=== PATIENT | female | born 1995 | race Caucasian/White ===

== ENCOUNTER → 2017-12-08 18:27 | Emergency (ER) | payer OTHER ==
[~2017-12-08 18:27] MED LIST: Famotidine TAB* 20 MG PO ONE; predniSONE TAB* 20 MG PO ONE
--- OUTSIDE RECORDS SUMMARY | 2017-12-08 18:55 | XMS REPORT ---
:1995 External Reference #:[id number] Author Organization [facility] Address [address] [place] [address] Phone [phone] Care Team Providers Name Role Phone Ines De La Cruz M.D. Care Team Information Order Packer Or Packager Unavailable Payers Type Date Identification Numbers Payment Provider Subscriber Commercial Policy Number: [id number] [facility] Moises Alvarado PayID: [id number] [address] [place] [address] Problems Date Description Provider Status Onset: 10/27/2016 Mild intermittent asthma Ines De La Cruz M.D. Active Onset: 04/09/2016 Atopic dermatitis Ines De La Cruz M.D. 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 Active Onset: 04/09/2016 Allergic rhinitis Ines De La Cruz M.D. Active Onset: 04/09/2016 Allergic rhinitis due to animals Ines De La Cruz M.D. Active Onset: 04/09/2016 Allergic rhinitis due to pollen Ines De La Cruz M.D. Active Onset: 04/09/2016 Mild persistent asthma Ines De La Cruz M.D. 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 Home Environment Has a window air conditioner Home Environment Stairs are present Home Environment Unfinished Basement Home Environment The basement is damp Home Environment Down Comforter Home Environment Mattress is encased in an allergy proof case Home Environment No Mattress Cover Home Environment Mattress is 2 years old Home Environment Pillows are encased in an allergy proof case Home Environment Pillows are polyester Home Environment Does not use a dehumidifier Home Environment There are draperies in the home Home Environment The home is not chuy Home Environment The floors are wood Home Environment The floors are tile Home Environment Uses forced air heating Home Environment [place] Home Environment Water Source: [facility] Smoke-Free Work is smoke-free Smoke-Free Home is smoke-free Pets several cats currently 1, roommate with 1, may get second Occupation Student Occupation [employer] Work Status Part-Time Employment Work Environment [facility] Hobbies Bowling Hobbies Running Hobbies Soccer Cigarette Use Never Smoked Cigarettes Cigars Never Smoked Cigars Pipe Never Smoked A Pipe Smokeless Tobacco Never Used Smokeless Tobacco ETOH Use Occasionally consumes alcohol ETOH Use Rarely consumes beer ETOH Use Occasionally consumes wine ETOH Use Occasionally consumes liquor Smoking Patient has never smoked Recreational Drug Use Never Used Drugs Allergies, Adverse Reactions, Alerts Date Description Reaction Status Severity Comments 04/05/2016 Sesame Anaphylaxis active 04/05/2016 Tree Nuts Anaphylaxis active 04/05/2016 Sulfa Anaphylaxis active 04/09/2016 Arythromycin intolerance active 10/27/2016 Latex Contact dermatitis active 10/27/2016 Opioid headache active Medications Medication Date Status Form Strength Qnty SIG Indications Ordering Provider Symbicort 11/17/ Active Aerosol 160-4.5mcg 10.20 2 2017 /Act 0gm inhalations Jono am&pm Leni Auvi-Q 05/10/ Active Solution 0.3mg/0.3M 2unit use as J30.1 2016 Auto-Injec L s directed sonja De La Cruz M.D. Qnasl 04/09/ Active Aerosol 80mcg/Act 8.7un 1-2 sprays Natalie 2016 its in each Uldrich, nostril HEARING SPECIALIST-C daily Proair HFA / Active Aerosol 108(90Base 8.500 two Natalie 0000 ) mcg/Act gm inhalations Uldrich, every 4 HEARING SPECIALIST-C hours as needed for cough, wheezing or chest tightness Elidel / Active Cream 1% apply to Unknown 0000 affected areas twice a day Fluocinonide / Active Solution 0.05% Unknown 0000 Epipen 2-Jayro / Active Solution 0.3mg/0.3M 2unit use as Kelly 0000 Auto-Injec L s directed. Magnolia t May fill HEARING SPECIALIST-C with Mylan generic Only if Epipen is not available Eucrisa / Active Ointment 2% Apply To Unknown 0000 Affected Area Twice Daily Symbicort / Active Aerosol 160-4.5mcg 2 Unknown 0000 /Act inhalations am&pm Cortizone-10 / Active Cream 1% Unknown Plus 0000 Medications Administered in Office Medication Date Status Form Strength Qnty SIG Indications Ordering Provider Injection 11/18/19 Administered Injection Allergy 18 Injection Injection 11/05/19 Administered Injection Allergy 18 Injection Injection 10/06/19 Administered Injection Allergy 18 Injection Injection 09/27/19 Administered Injection Allergy 18 Injection Injection 08/25/19 Administered Injection Allergy 18 Injection Injection 08/19/19 Administered Injection Ines De La Cruz M.D. Injection 08/19/19 Administered Injection Allergy 18 Injection Injection 08/06/19 Administered Injection Allergy 18 Injection Injection 08/02/19 Administered Injection Allergy 18 Injection Injection 07/30/19 Administered Injection Allergy 18 Injection Injection 07/02/19 Administered Injection Allergy 18 Injection Injection 06/25/19 Administered Injection Allergy 18 Injection Injection 06/21/19 Administered Injection Allergy 18 Injection Injection 06/14/19 Administered Injection Allergy 18 Injection Injection 06/07/19 Administered Injection Allergy 18 Injection Injection 05/31/19 Administered Injection Allergy 18 Injection Injection 05/26/19 Administered Injection Allergy 18 Injection Injection 05/19/19 Administered Injection Allergy 18 Injection Injection 05/12/19 Administered Injection Allergy 18 Injection Injection 05/05/19 Administered Injection Ines De La Cruz M.D. Injection 05/05/19 Administered Injection Allergy 18 Injection Injection 04/28/19 Administered Injection Allergy 18 Injection Injection 04/21/19 Administered Injection Allergy 18 Injection Injection 04/13/19 Administered Injection Allergy 18 Injection Injection 04/04/19 Administered Injection Allergy 18 Injection Injection 03/28/19 Administered Injection Allergy 18 Injection Injection 03/11/19 Administered Injection Allergy 18 Injection Injection 03/07/19 Administered Injection Allergy 18 Injection Injection 02/25/19 Administered Injection Allergy 18 Injection Injection 02/18/19 Administered Injection Ines De La Cruz M.D. Injection 02/18/19 Administered Injection Allergy 18 Injection Injection 02/12/20 Administered Injection Allergy 17 Injection Injection 01/29/20 Administered Injection Ines 17 Leni De La Cruz Injection 01/29/20 Administered Injection Allergy 17 Injection Injection 01/20/20 Administered Injection Allergy 17 Injection Injection 01/11/20 Administered Injection Allergy 17 Injection Injection 01/04/20 Administered Injection Allergy 17 Injection Injection 01/01/20 Administered Injection Allergy 17 Injection Injection 12/28/19 Administered Injection Allergy 17 Injection Injection 12/17/19 Administered Injection Allergy 17 Injection Injection 11/27/19 Administered Injection Allergy 17 Injection Injection 11/20/19 Administered Injection Allergy 17 Injection Injection 11/16/19 Administered Injection Allergy 17 Injection Injection 11/05/19 Administered Injection Allergy 17 Injection Injection 10/30/19 Administered Injection Ines De La Cruz M.D. Injection 10/30/19 Administered Injection Allergy 17 Injection Injection 10/23/19 Administered Injection Allergy 17 Injection Injection 10/16/19 Administered Injection Allergy 17 Injection Injection 10/09/19 Administered Injection Allergy 17 Injection Injection 10/02/19 Administered Injection Allergy 17 Injection Immunizations CPT Code Status Date Vaccine Lot # 90045 Given Unknown Influenza Vaccine 19534 Given Unknown Influenza Vaccine Vital Signs Date Vital Result Comment 11/17/2017 Height 63.5 inches 5'3.50" Weight 161.00 lb Weight in kg's 73.030 Respiratory Rate 16 /min Heart Rate 103 /min O2 % BldC Oximetry 97 % BP Systolic 110 mmHg BP Diastolic 58 mmHg Asthma Control Test 20 BMI (Body Mass Index) 28.1 kg/m2 05/04/2017 Height 63.5 inches 5'3.50" Weight 160.00 lb Weight in kg's 72.576 Respiratory Rate 20 /min Heart Rate 78 /min O2 % BldC Oximetry 98 % BP Systolic 104 mmHg BP Diastolic 61 mmHg Asthma Control Test 22 BMI (Body Mass Index) 27.9 kg/m2 10/27/2016 Height 63.5 inches 5'3.50" Weight 165.00 lb Weight in kg's 74.844 Respiratory Rate 20 /min Heart Rate 67 /min O2 % BldC Oximetry 98 % BP Systolic 105 mmHg BP Diastolic 65 mmHg Asthma Control Test 25 BMI (Body Mass Index) 28.8 kg/m2 05/10/2016 Height 63.5 inches 5'3.50" Weight 156.00 lb Weight in kg's 70.762 Respiratory Rate 16 /min Heart Rate 92 /min O2 % BldC Oximetry 98 % BP Systolic 114 mmHg BP Diastolic 76 mmHg Asthma Control Test 25 BMI (Body Mass Index) 27.2 kg/m2 04/09/2016 Height 63.5 inches 5'3.50" Weight 156.00 lb Weight in kg's 70.762 Respiratory Rate 16 /min Heart Rate 99 /min O2 % BldC Oximetry 83 % BP Systolic 101 mmHg BP Diastolic 63 mmHg Asthma Control Test 25 BMI (Body Mass Index) 27.2 kg/m2 Results Description No Information Procedures Date CPT Code Description Status 11/17/2017 30900 Injection Completed 11/17/2017 50347 Pre PFT Completed 11/04/2017 89440 Injection Completed 10/05/2017 19374 Injection Completed 09/26/2017 59683 Injection Completed 08/24/2017 97985 Injection Completed 08/18/2017 22964 Extract 1-10 Completed 08/18/2017 52556 Extract 1-10 Completed 08/18/2017 16977 Injection Completed 08/18/2017 23048 Injection Completed 08/05/2017 25206 Injection Completed 08/01/2017 83694 Injection Completed 07/29/2017 27267 Injection Completed 07/01/2017 35130 Injection Completed 06/24/2017 96137 Injection Completed 06/20/2017 98757 Injection Completed 06/13/2017 29357 Injection Completed 06/06/2017 08047 Injection Completed 05/30/2017 05804 Injection Completed 05/25/2017 43223 Extract 1-10 Completed 05/25/2017 26918 Injection Completed 05/18/2017 70415 Injection Completed 05/11/2017 70858 Injection Completed 05/04/2017 76552 Injection Completed 05/04/2017 92239 Injection Completed 04/27/2017 90734 Injection Completed 04/20/2017 90068 Injection Completed 04/13/2017 21147 Injection Completed 04/04/2017 54776 Injection Completed 03/28/2017 77524 Injection Completed 03/11/2017 16514 Injection Completed 03/07/2017 36175 Extract 1-10 Completed 03/07/2017 74969 Injection Completed 02/25/2017 70688 Injection Completed 02/18/2017 34818 Injection Completed 02/18/2017 72022 Injection Completed 02/11/2017 67967 Injection Completed 01/28/2017 40637 Injection Completed 01/28/2017 12620 Injection Completed 01/19/2017 78087 Injection Completed 01/10/2017 45657 Injection Completed 01/03/2017 86454 Injection Completed 12/31/2016 52955 Injection Completed 12/27/2016 98789 Injection Completed 12/16/2016 44852 Injection Completed 12/16/2016 79657 Extract 1-10 Completed 11/26/2016 88204 Injection Completed 11/19/2016 14453 Injection Completed 11/15/2016 26565 Injection Completed 11/04/2016 07885 Injection Completed 10/29/2016 78609 Injection Completed 10/29/2016 77271 Injection Completed 10/22/2016 27699 Injection Completed 10/15/2016 74342 Injection Completed 10/08/2016 26969 Injection Completed 10/01/2016 58736 Injection Completed 09/29/2016 41083 Extract 1-10 Completed 04/09/2016 98907 Skin Test Scratch # Of Units ____ Completed 04/09/2016 25131 Pre PFT Completed Encounters Type Date Location Provider CPT E/M Dx Office Visit 05/04/2017 4:20p Zuleyma De La Cruz M.D. 12644 J45.20 J30.1 J30.2 J30.81 Office Visit 10/27/2016 4:20p Zuleyma De La Cruz M.D. 76449 J30.1 J30.2 J30.81 J45.20 Office Visit 05/10/2016 1:20p VINCENT Arredondo 79338 J30.1 J45.30 J30.81 T78.05xA J30.89 L20.9 Z68.27 Office Visit 04/09/2016 1:20p Zuleyma De La Cruz M.D. 50794 J30.1 J45.30 J30.81 T78.05xA J30.89 J30.1 L20.9 J30.81 J30.89 L20.9 Z68.27 Plan of Care Future Appointment(s):02/15/2018 4:20 pm - Ines De La Cruz M.D. at [id number] 4:30 pm - Allergy Injection at [id number]/17/2017 - Ines De La Cruz M.D.J45.30 Mild persistent asthma, pvsaxqyfhlfknW56.2 Other seasonal allergic axkepvrlT04.81 Allergic rhinitis due to animal (cat) (dog) hair and qawqhtO03.1 Allergic rhinitis due to pollenNew Medication:Symbicort 160-4.5 mcg/ActFollow up :January 2018 Génesis and PRE CHECK-UP/FOLLOW UP VISIT: Continued management of patient's medical care.Recommendations:Refrain from wearing perfumes/scented colognes while visiting our office. www.epa.gov/IAQ - indoor air quality Check it make sure that it is not electrostatic/ Ionizing, these can produce ozone PRE_PFT performed reviewed, looks decreased from your previous test in 03/2016 Do suggest at least for a few weeks increase Symbicort to 2 puffs twice daily Continue the QNASL and Antihistamine as you have Let us know where you will be going when you travel in 2019 and we will see what we can do in order to
--- NOTE | 2017-12-08 19:04 | ED ---
Allergic Reaction/Systemic - HPI Summary HPI Summary: Patient with history of sesame allergy states she was eating some pretzels and felt throat irritation. Checked the ingredients which were positive for sesame. Patient carries EpiPen due to prior reaction to sesame but did not use today. Patient called 911, EMS gave 50 mg IV of Benadryl, Pt states throat symptoms are improving. Denies any other current or active symptoms. Patient states she has had 8-10 reactions before varying from minor to anaphylaxis with sesame. Denies CP, SOB, rash, oral swelling, oral swelling. - History of Current Complaint Chief Complaint: EDAllergicReaction Time Seen by Provider: 12/08/17 18:45 Hx Obtained From: Patient Onset/Duration: Sudden Onset Severity Currently: None Pain Intensity: 0 Pain Scale Used: 0-10 Numeric Alleviating Factor(s): Antihistamines Associated Signs And Symptoms: Positive: Throat Tightening - Allergies/Home Medications Allergies/Adverse Reactions: Allergies Allergy/AdvReac Type Severity Reaction Status Date / Time MS Erythromycin Allergy Nausea Verified 12/08/17 18:44 [Erythromycin] MS Sesame Oil [Sesame Oil] Allergy Anxiety Verified 12/08/17 18:44 MS Sulfa Antibiotics Allergy Anaphylatic Verified 12/08/17 18:44 [Sulfa Antibiotics] Shock eleuterio nut Allergy Nausea Uncoded 12/08/17 18:44 nuts Allergy Hives Uncoded 12/08/17 18:44 opiates Allergy Headache Uncoded 12/08/17 18:44 PMH/Surg Hx/FS Hx/Imm Hx Endocrine/Hematology History: Denies: Hx Anticoagulant Therapy Respiratory History: Reports: Hx Asthma History: Denies: Hx Dialysis Neurological History: Denies: Hx CVA Infectious Disease History: No Infectious Disease History: Denies: Traveled Outside the [place] in Last 30 Days - Family History Known Family History: Negative: Cardiac Disease, Hypertension, Diabetes - Social History Alcohol Use: Occasionally Hx Substance Use: No Substance Use Type: Reports: None Hx Tobacco Use: No Smoking Status (MU): Never Smoked Tobacco Review of Systems Constitutional: Negative Eyes: Negative Positive: Other Cardiovascular: Negative Respiratory: Negative Gastrointestinal: Negative Genitourinary: Negative Musculoskeletal: Negative Skin: Negative Neurological: Negative Psychological: Normal All Other Systems Reviewed And Are Negative: Yes Physical Exam Triage Information Reviewed: Yes Vital Signs On Initial Exam: Initial Vitals Temp Pulse Resp BP Pulse Ox 99.5 F 84 16 139/66 99 12/08/17 18:40 12/08/17 18:40 12/08/17 18:40 12/08/17 18:40 12/08/17 18:40 Vital Signs Reviewed: Yes Appearance: Positive: Well-Appearing Skin: Positive: Warm Head/Face: Positive: Normal Head/Face Inspection Eyes: Positive: Normal ENT: Positive: Normal ENT inspection Neck: Positive: Supple Respiratory/Lung Sounds: Positive: Clear to Auscultation Cardiovascular: Positive: Normal Abdomen Description: Positive: Nontender Musculoskeletal: Positive: Normal Neurological: Positive: Normal Psychiatric: Positive: Normal AVPU Assessment: Alert - Jasmine Coma Scale Best Eye Response: 4 - Spontaneous Best Motor Response: 6 - Obeys Commands Best Verbal Response: 5 - Oriented Coma Scale Total: 15 Diagnostics - Vital Signs Vital Signs Temp Pulse Resp BP Pulse Ox 12/08/17 18:45 80 118/68 98 12/08/17 18:44 87 99 12/08/17 18:40 99.5 F 84 16 139/66 99 - Laboratory Lab Statement: Any lab studies that have been ordered have been reviewed, and results considered in the medical decision making process. Allergic Reaction Course/Dx - Course Course Of Treatment: Patient with history of sesame allergy states she was eating some pretzels and felt throat irritation. Checked the ingredients which were positive for sesame. Patient carries EpiPen due to prior reaction to sesame but did not use today. Patient called 911, EMS gave 50 mg IV of Benadryl , Pt states throat symptoms are improving. Denies any other current or active symptoms. Patient states she has had 8-10 reactions before varying from minor to anaphylaxis with sesame. Denies CP, SOB, rash, oral swelling, oral swelling. Physical exam unremarkable. Patient states more severe reactions are immediate onset, is confident this is a minor reaction. Patient states she is happy to have prednisone and Pepcid but is comfortable leaving right after medication administration. Patient states she has EpiPen, and his very familiar with her symptoms and will call 911 if she has secondary reaction. Vital signs within normal limits. Patient given prednisone 60 mg and 40 mg Pepcid. Rx for prednisone 40 mg 5 days. - Diagnoses Provider Diagnoses: Allergic reaction Discharge - Sign-Out/Discharge Documenting (check all that apply): Patient Departure - Discharge Plan Condition: Stable Disposition: HOME Prescriptions: predniSONE TAB* [Deltasone 20 MG TAB*] 40 mg PO DAILY 5 Days #5 tab Patient Education Materials: Food Allergy (ED) Referrals: Non Staff,Doctor [Medical Doctor] - Additional Instructions: Follow-up with primary care. Return to the ED for any new or worsening symptoms - Billing Disposition and Condition Condition: STABLE Disposition: Home
[2017-12-08 19:24] VITALS: BP 115/70
== END | disposition home or self-care (01) ==
LOC: ED 18:27
DX: T78.40XA Allergy, unspecified, initial encounter (principal); X58.XXXA Exposure to other specified factors, initial encounter; R60.0 Localized edema
CPT/HCPCS: 99283; A9270-GY; J7512

== ENCOUNTER 2018-12-27 12:10 | Observation (INO) | payer BC, OTHER ==
[2018-12-27] MEDS ORDERED: Ketorolac INJ* 30 MG/ML 1 ML VIAL IV ONE (12:16)
[2018-12-27] MEDS ORDERED: Ondansetron INJ* 2 MG/ML VIAL IV ONE ×2 (12:18→17:22)
--- OUTSIDE RECORDS SUMMARY | 2018-12-27 12:24 | XMS REPORT | Continuity of Care Document ---
:1995 External Reference #:[id number] Author Name Ines De La Cruz M.D. Address [address] [place] [address] Problems Active Problems Provider Date Mild persistent asthma Ines De La Cruz M.D. Onset: 04/09/2016 Allergic rhinitis due to pollen Ines De La Cruz M.D. Onset: 04/09/2016 Allergic rhinitis due to animals Ines De La Cruz M.D. Onset: 04/09/2016 Allergic rhinitis Ines De La Cruz M.D. 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 Onset: 04/09/2016 Atopic dermatitis Ines De La Cruz M.D. Onset: 04/09/2016 Mild intermittent asthma Ines De La Cruz M.D. Onset: 10/27/2016 Moderate persistent asthma Ines De La Cruz M.D. Onset: 11/22/2018 Exacerbation of moderate persistent asthma Ines De La Cruz M.D. Onset: 2018 Social History Type Date Description Comments Sex Unknown Tobacco Use Start: Unknown Never Smoked Cigarettes Tobacco Use Start: Unknown Never Smoked Cigars Tobacco Use Start: Unknown Never Smoked A Pipe Tobacco Use Start: Unknown Never Used Smokeless Tobacco ETOH Use Occasionally consumes alcohol ETOH Use Rarely consumes beer ETOH Use Occasionally consumes wine ETOH Use Occasionally consumes liquor Tobacco Use Start: Unknown Patient has never smoked Recreational Drug Use Never Used Drugs Allergies, Adverse Reactions, Alerts Active Allergies Reaction Severity Comments Date Sesame Anaphylaxis 04/05/2016 Tree Nuts Anaphylaxis 04/05/2016 Sulfa Anaphylaxis 04/05/2016 Arythromycin intolerance 04/09/2016 Latex Contact dermatitis 10/27/2016 Opioid headache 10/27/2016 Medications Active Medications SIG Qnty Indications Ordering Date Provider Tacrolimus apply topically to 30gm J30.1 Ines De La Cruz, 07/20/2018 0.03% eczema flares of M.D. Ointment face, twice daily or as needed Auvi-Q use as directed 2units J30.1 Natalie 05/10/2016 0.3mg/0.3ML Uldrich, [employer]-C Solution Auto-Inject Qnasl 1-2 sprays in each 8.7units Natalie 04/09/2016 80mcg/Act nostril daily Uldrich, [employer] Aerosol Proair HFA two inhalations 8.500gm Natalie every 4 hours as Uldrich, [employer] I [employer]-C 108(90Base) mcg/Act needed for cough, Aerosol wheezing or chest tightness Fluocinonide Unknown 0.05% Solution Epipen 2-Jayro use as directed. 2units Olya may fill with CodeyRPA-C 0.3mg/0.3ML Solution mylan generic only Auto-Inject if epipen is not available Eucrisa Apply To Affected Unknown 2% Ointment Area Twice Daily Cortizone-10 Plus Unknown 1% Cream Multivitamins Unknown Capsules Probiotic 1/day Unknown Acidophilus Capsules Patricia Allergy 1 by mouth every Unknown 180mg day Tablets Fish Oil 1 capsule daily. Unknown 500mg Capsules Medications Administered in Office Medication SIG Qnty Indications Ordering Provider Date Injection Allergy Injection 11/22/2018 Injection Injection Allergy Injection 11/16/2018 Injection Injection Allergy Injection 11/13/2018 Injection Injection Allergy Injection 11/10/2018 Injection Injection Allergy Injection 10/11/2018 Injection Injection Allergy Injection 10/02/2018 Injection Injection Allergy Injection 09/21/2018 Injection Injection Allergy Injection 09/15/2018 Injection Injection Allergy Injection 08/30/2018 Injection Injection Allergy Injection 07/20/2018 Injection Injection Allergy Injection 07/05/2018 Injection Injection Allergy Injection 05/31/2018 Injection Injection Allergy Injection 05/17/2018 Injection Injection Allergy Injection 05/10/2018 Injection Injection Allergy Injection 05/08/2018 Injection Injection Allergy Injection 04/21/2018 Injection Injection Allergy Injection 04/19/2018 Injection Injection Allergy Injection 04/12/2018 Injection Injection Allergy Injection 03/29/2018 Injection Injection Allergy Injection 02/20/2018 Injection Injection Allergy Injection 01/30/2018 Injection Injection Allergy Injection 01/09/2018 Injection Injection Allergy Injection 12/22/2017 Injection Injection Allergy Injection 12/14/2017 Injection Injection Allergy Injection 12/08/2017 Injection Injection Allergy Injection 11/28/2017 Injection Injection Allergy Injection 11/17/2017 Injection Injection Allergy Injection 11/04/2017 Injection Injection Allergy Injection 10/05/2017 Injection Injection Allergy Injection 09/26/2017 Injection Injection Allergy Injection 08/24/2017 Injection Injection Ines De La Cruz M.D. 08/18/2017 Injection Injection Allergy Injection 08/18/2017 Injection Injection Allergy Injection 08/05/2017 Injection Injection Allergy Injection 08/01/2017 Injection Injection Allergy Injection 07/29/2017 Injection Injection Allergy Injection 07/01/2017 Injection Injection Allergy Injection 06/24/2017 Injection Injection Allergy Injection 06/20/2017 Injection Injection Allergy Injection 06/13/2017 Injection Injection Allergy Injection 06/06/2017 Injection Injection Allergy Injection 05/30/2017 Injection Injection Allergy Injection 05/25/2017 Injection Injection Allergy Injection 05/18/2017 Injection Injection Allergy Injection 05/11/2017 Injection Injection Ines De La Cruz M.D. 05/04/2017 Injection Injection Allergy Injection 05/04/2017 Injection Injection Allergy Injection 04/27/2017 Injection Injection Allergy Injection 04/20/2017 Injection Injection Allergy Injection 04/13/2017 Injection Injection Allergy Injection 04/04/2017 Injection Injection Allergy Injection 03/28/2017 Injection Injection Allergy Injection 03/11/2017 Injection Injection Allergy Injection 03/07/2017 Injection Injection Allergy Injection 02/25/2017 Injection Injection Ines De La Cruz M.D. 02/18/2017 Injection Injection Allergy Injection 02/18/2017 Injection Injection Allergy Injection 02/11/2017 Injection Injection Ines De La Cruz M.D. 01/28/2017 Injection Injection Allergy Injection 01/28/2017 Injection Injection Allergy Injection 01/19/2017 Injection Injection Allergy Injection 01/10/2017 Injection Injection Allergy Injection 01/03/2017 Injection Injection Allergy Injection 12/31/2016 Injection Injection Allergy Injection 12/27/2016 Injection Injection Allergy Injection 12/16/2016 Injection Injection Allergy Injection 11/26/2016 Injection Injection Allergy Injection 11/19/2016 Injection Injection Allergy Injection 11/15/2016 Injection Injection Allergy Injection 11/04/2016 Injection Injection Ines De La Cruz M.D. 10/29/2016 Injection Injection Allergy Injection 10/29/2016 Injection Injection Allergy Injection 10/22/2016 Injection Injection Allergy Injection 10/15/2016 Injection Injection Allergy Injection 10/08/2016 Injection Injection Allergy Injection 10/01/2016 Injection Immunizations CPT Code Status Date Vaccine Lot # [id number] Given Unknown Influenza Vaccine 00662 Given Unknown Influenza Vaccine Vital Signs Date Vital Result Comment 11/22/2018 12:02pm Height 63.5 inches 5'3.50" Weight 160.00 lb Weight 72.576 kg Respiratory Rate 20 /min Heart Rate 89 /min O2 % BldC Oximetry 97 % BP Systolic 125 mmHg BP Diastolic 88 mmHg Asthma Control Test 25 BMI (Body Mass Index) 27.9 kg/m2 07/20/2018 11:58am Height 63.5 inches 5'3.50" Weight 157.00 lb Weight 71.215 kg Respiratory Rate 21 /min Heart Rate 67 /min O2 % BldC Oximetry 97 % BP Systolic 112 mmHg BP Diastolic 72 mmHg Asthma Control Test 24 Fractional Exhaled Nitric Oxide 38 BMI (Body Mass Index) 27.4 kg/m2 Results Description No Information Available Procedures Date Code Description Status 11/22/2018 07517 Injection Completed 11/16/2018 28042 Extract 1-10 Completed 11/16/2018 56016 Injection Completed 11/13/2018 06526 Injection Completed 11/10/2018 79861 Injection Completed 10/11/2018 01211 Injection Completed 10/02/2018 31539 Injection Completed 09/21/2018 75173 Injection Completed 09/15/2018 53563 Injection Completed 08/30/2018 15780 Injection Completed 07/20/2018 02750 Injection Completed 07/20/2018 98979 Nitric Oxide Gas Determination Completed 07/20/2018 60348 Pre PFT Completed 07/05/2018 73148 Injection Completed 05/31/2018 43061 Extract 1-10 Completed 05/31/2018 98300 Injection Completed Medical Devices Description No Information Available Encounters Type Date Location Provider Dx Diagnosis Office Visit 11/22/2018 Antoine Ines De La Cruz, J45.40 Moderate persistent 11:40a M.D. asthma, uncomplicated J30.1 Allergic rhinitis due to pollen J30.2 Other seasonal allergic rhinitis J30.81 Allergic rhinitis due to animal (cat) (dog) hair and dander J30.89 Other allergic rhinitis Office Visit 07/20/2018 11:40a Antoine Ines De La Cruz, J45.41 Moderate persistent M.D. asthma with (acute) exacerbation J30.1 Allergic rhinitis due to pollen J30.2 Other seasonal allergic rhinitis J30.81 Allergic rhinitis due to animal (cat) (dog) hair and dander Assessments Date Code Description Provider 11/22/2018 J30.2 Other seasonal allergic rhinitis Ines De La Cruz M.D. 11/22/2018 J45.40 Moderate persistent asthma Ines De La Cruz M.D. 11/22/2018 J30.89 Other allergic rhinitis Ines De La Cruz M.D. 11/22/2018 J30.1 Allergic rhinitis due to pollen Ines De La Cruz M.D. 11/22/2018 J30.1 Allergic rhinitis due to pollen Ines De La Cruz M.D. 11/22/2018 J30.2 Other seasonal allergic rhinitis Ines De La Cruz M.D. 11/22/2018 J30.81 Allergic rhinitis due to animal (cat) (dog) Ines De La Cruz M.D. hair and dander 11/22/2018 J30.81 Allergic rhinitis due to animal (cat) (dog) Ines De La Cruz M.D. hair and dander 11/22/2018 J30.89 Other allergic rhinitis Ines De La Curz M.D. 11/22/2018 J30.1 Allergic rhinitis due to pollen Allergy Injection 11/22/2018 J30.2 Other seasonal allergic rhinitis Allergy Injection 11/22/2018 J30.81 Allergic rhinitis due to animal (cat) (dog) Allergy Injection hair and dander 11/22/2018 J30.89 Other allergic rhinitis Allergy Injection 11/16/2018 J30.1 Allergic rhinitis due to pollen Ines De La Cruz M.D. 11/16/2018 J30.1 Allergic rhinitis due to pollen Allergy Injection 11/16/2018 J30.2 Other seasonal allergic rhinitis Ines De La Cruz M.D. 11/16/2018 J30.2 Other seasonal allergic rhinitis Allergy Injection 11/16/2018 J30.81 Allergic rhinitis due to animal (cat) (dog) Ines De La Cruz M.D. hair and dander 11/16/2018 J30.81 Allergic rhinitis due to animal (cat) (dog) Allergy Injection hair and dander 11/16/2018 J30.89 Other allergic rhinitis Ines De La Cruz M.D. 11/16/2018 J30.89 Other allergic rhinitis Allergy Injection 11/13/2018 J30.1 Allergic rhinitis due to pollen Ines De La Cruz M.D. 11/13/2018 J30.1 Allergic rhinitis due to pollen Allergy Injection 11/13/2018 J30.2 Other seasonal allergic rhinitis Ines De La Cruz M.D. 11/13/2018 J30.2 Other seasonal allergic rhinitis Allergy Injection 11/13/2018 J30.81 Allergic rhinitis due to animal (cat) (dog) Ines De La Cruz M.D. hair and dander 11/13/2018 J30.81 Allergic rhinitis due to animal (cat) (dog) Allergy Injection hair and dander 11/13/2018 J30.89 Other allergic rhinitis Ines De La Cruz M.D. 11/13/2018 J30.89 Other allergic rhinitis Allergy Injection 11/10/2018 J30.1 Allergic rhinitis due to pollen Ines De La Cruz M.D. 11/10/2018 J30.1 Allergic rhinitis due to pollen Allergy Injection 11/10/2018 J30.2 Other seasonal allergic rhinitis Ines De La Cruz M.D. 11/10/2018 J30.2 Other seasonal allergic rhinitis Allergy Injection 11/10/2018 J30.81 Allergic rhinitis due to animal (cat) (dog) Ines De La Cruz M.D. hair and dander 11/10/2018 J30.81 Allergic rhinitis due to animal (cat) (dog) Allergy Injection hair and dander 11/10/2018 J30.89 Other allergic rhinitis Ines De La Cruz M.D. 11/10/2018 J30.89 Other allergic rhinitis Allergy Injection 10/11/2018 J30.1 Allergic rhinitis due to pollen Ines De La Cruz M.D. 10/11/2018 J30.1 Allergic rhinitis due to pollen Allergy Injection 10/11/2018 J30.2 Other seasonal allergic rhinitis Ines De La Cruz M.D. 10/11/2018 J30.2 Other seasonal allergic rhinitis Allergy Injection 10/11/2018 J30.81 Allergic rhinitis due to animal (cat) (dog) Ines De La Cruz M.D. hair and dander 10/11/2018 J30.81 Allergic rhinitis due to animal (cat) (dog) Allergy Injection hair and dander 10/11/2018 J30.89 Other allergic rhinitis Ines De La Cruz M.D. 10/11/2018 J30.89 Other allergic rhinitis Allergy Injection 10/02/2018 J30.1 Allergic rhinitis due to pollen Ines De La Cruz M.D. 10/02/2018 J30.1 Allergic rhinitis due to pollen Allergy Injection 10/02/2018 J30.2 Other seasonal allergic rhinitis Ines De La Cruz M.D. 10/02/2018 J30.2 Other seasonal allergic rhinitis Allergy Injection 10/02/2018 J30.81 Allergic rhinitis due to animal (cat) (dog) Ines De La Cruz M.D. hair and dander 10/02/2018 J30.81 Allergic rhinitis due to animal (cat) (dog) Allergy Injection hair and dander 10/02/2018 J30.89 Other allergic rhinitis Ines De La Cruz M.D. 10/02/2018 J30.89 Other allergic rhinitis Allergy Injection 09/21/2018 J30.1 Allergic rhinitis due to pollen Ines De La Cruz M.D. 09/21/2018 J30.1 Allergic rhinitis due to pollen Allergy Injection 09/21/2018 J30.2 Other seasonal allergic rhinitis Ines De La Cruz M.D. 09/21/2018 J30.2 Other seasonal allergic rhinitis Allergy Injection 09/21/2018 J30.81 Allergic rhinitis due to animal (cat) (dog) Ines De La Cruz M.D. hair and dander 09/21/2018 J30.81 Allergic rhinitis due to animal (cat) (dog) Allergy Injection hair and dander 09/21/2018 J30.89 Other allergic rhinitis Ines De La Cruz M.D. 09/21/2018 J30.89 Other allergic rhinitis Allergy Injection 09/15/2018 J30.1 Allergic rhinitis due to pollen Ines De La Cruz M.D. 09/15/2018 J30.1 Allergic rhinitis due to pollen Allergy Injection 09/15/2018 J30.2 Other seasonal allergic rhinitis Ines De La Cruz M.D. 09/15/2018 J30.2 Other seasonal allergic rhinitis Allergy Injection 09/15/2018 J30.81 Allergic rhinitis due to animal (cat) (dog) Ines De La Cruz M.D. hair and dander 09/15/2018 J30.81 Allergic rhinitis due to animal (cat) (dog) Allergy Injection hair and dander 09/15/2018 J30.89 Other allergic rhinitis Ines De La Cruz M.D. 09/15/2018 J30.89 Other allergic rhinitis Allergy Injection 08/30/2018 J30.1 Allergic rhinitis due to pollen Ines De La Cruz M.D. 08/30/2018 J30.1 Allergic rhinitis due to pollen Allergy Injection 08/30/2018 J30.2 Other seasonal allergic rhinitis Ines De La Cruz M.D. 08/30/2018 J30.2 Other seasonal allergic rhinitis Allergy Injection 08/30/2018 J30.81 Allergic rhinitis due to animal (cat) (dog) Ines De La Cruz M.D. hair and dander 08/30/2018 J30.81 Allergic rhinitis due to animal (cat) (dog) Allergy Injection hair and dander 08/30/2018 J30.89 Other allergic rhinitis Ines De La Cruz M.D. 08/30/2018 J30.89 Other allergic rhinitis Allergy Injection 07/20/2018 J30.1 Allergic rhinitis due to pollen Ines De La Cruz M.D. 07/20/2018 J45.41 Moderate persistent asthma with (acute) Ines De La Cruz M.D. exacerbation 07/20/2018 J30.1 Allergic rhinitis due to pollen Allergy Injection 07/20/2018 J30.2 Other seasonal allergic rhinitis Ines De La Cruz M.D. 07/20/2018 J30.1 Allergic rhinitis due to pollen Ines De La Cruz M.D. 07/20/2018 J30.2 Other seasonal allergic rhinitis Allergy Injection 07/20/2018 J30.81 Allergic rhinitis due to animal (cat) (dog) Ines De La Cruz M.D. hair and dander 07/20/2018 J30.2 Other seasonal allergic rhinitis Ines De La Cruz M.D. 07/20/2018 J30.81 Allergic rhinitis due to animal (cat) (dog) Allergy Injection hair and dander 07/20/2018 J30.89 Other allergic rhinitis Ines De La Cruz M.D. 07/20/2018 J30.81 Allergic rhinitis due to animal (cat) (dog) Ines De La Cruz M.D. hair and dander 07/20/2018 J30.89 Other allergic rhinitis Allergy Injection 07/05/2018 J30.1 Allergic rhinitis due to pollen Ines De La Cruz M.D. 07/05/2018 J30.1 Allergic rhinitis due to pollen Allergy Injection 07/05/2018 J30.2 Other seasonal allergic rhinitis Ines De La Cruz M.D. 07/05/2018 J30.2 Other seasonal allergic rhinitis Allergy Injection 07/05/2018 J30.81 Allergic rhinitis due to animal (cat) (dog) Ines De La Cruz M.D. hair and dander 07/05/2018 J30.81 Allergic rhinitis due to animal (cat) (dog) Allergy Injection hair and dander 07/05/2018 J30.89 Other allergic rhinitis Ines De La Cruz M.D. 07/05/2018 J30.89 Other allergic rhinitis Allergy Injection 05/31/2018 J30.1 Allergic rhinitis due to pollen Ines De La Cruz M.D. 05/31/2018 J30.1 Allergic rhinitis due to pollen Allergy Injection 05/31/2018 J30.2 Other seasonal allergic rhinitis Ines De La Cruz M.D. 05/31/2018 J30.2 Other seasonal allergic rhinitis Allergy Injection 05/31/2018 J30.81 Allergic rhinitis due to animal (cat) (dog) Ines De La Cruz M.D. hair and dander 05/31/2018 J30.81 Allergic rhinitis due to animal (cat) (dog) Allergy Injection hair and dander 05/31/2018 J30.89 Other allergic rhinitis Ines De La Cruz M.D. 05/31/2018 J30.89 Other allergic rhinitis Allergy Injection Plan of Treatment No Information Available Functional Status Description No Information Available Mental Status Description No Information Available Referrals Description No Information Available
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
[2018-12-27 12:55] LABS: ABS Lymphocytes 0.5 10^3/ul (1.0-4.8); ABS Monocytes 0.3 10^3/ul (0-0.8); ABS Neutrophils 7.6 10^3/ul (1.5-7.7); Hematocrit 44 % (35-47); Hemoglobin 14.8 g/dL (12.0-16.0); Lymphocyte % 5.3 %; Mean Corpuscular HGB Conc 34 g/dL (31-36); Mean Corpuscular Hemoglobin 31 pg (27-31); Mean Corpuscular Volume 90 fL (80-97); Mean Platelet Volume 8.6 fL (7.4-10.4); Nucleated Red Blood Cells % 0.1; Platelet Count 201 10^3/uL (150-450); Red Blood Count 4.87 10^6 /uL (3.70-4.87); Red Cell Distribution Width 12 % (10-15); White Blood Count 8.4 10^3/uL (3.5-10.8)
[2018-12-27 13:00] LABS: INR 1.33 (0.82-1.09)
[2018-12-27] MEDS ORDERED: Lactated Ringers 1000 ML Bag* 1,000 ML IV ONE ×2 (13:00→16:00)
[2018-12-27 13:33] LABS: ALT 24 U/L (7-52); AST 24 U/L (13-39); Albumin 4.1 g/dL (3.2-5.2); Albumin/Globulin Ratio 1.6 (1-3); Alkaline Phosphatase 34 U/L (34-104); Amylase 14 U/L (29-103); Anion Gap 7 mmol/L (2-11); BUN/Creatinine Ratio 12.3 (8-20); Blood Urea Nitrogen 10 mg/dL (6-24); C Reactive Protein 6.41 mg/L (<8.01); CO2 Carbon Dioxide 25 mmol/L (22-32); Chloride 105 mmol/L (101-111); EGFR African American 104.2 (>60); EGFR Non-African American 86.2 (>60); Globulin 2.6 g/dL (2-4); Glucose 112 mg/dL (70-100); Magnesium 1.7 mg/dL (1.9-2.7); Potassium 2.9 mmol/L (3.5-5.0); Sodium 137 mmol/L (135-145); Total Protein 6.7 g/dL (6.4-8.9)
[2018-12-27 13:38] LABS: HCG Pregnancy < 0.60 mIU/mL
[2018-12-27] MEDS ORDERED: Potassium Chlor TAB* 20 MEQ TAB.ER PO ONE (13:39)
[2018-12-27] MEDS ORDERED: Magnesium Sulfate 2 GM IV* 2 GM/50 ML BAG IVPB ONE (14:03)
[2018-12-27] MEDS ORDERED: Lidocaine 2% VISCOUS* 15 ML UDC PO ONE (18:15)
[2018-12-27] MEDS ORDERED: Al Hydrox/Mg Hydrox/Simet LIQ* 30 ML UDC PO ONE (18:15)
--- NOTE | 2018-12-27 18:15 | ED ---
Progress - Progress Note Progress Note: patient was signed out by kamini MAHAN pending c diff. c diff neg. Re-Evaluation - Re-Evaluation First Eval Re-Evaluation Time: 19:19 Comment: patient states will having abdominal cramping, wants to wait a half an hour Second Eval Re-Evaluation Time: 19:57 Change: Improved Comment: pain free Third Eval Re-Evaluation Time: 22:20 Comment: not orthostatic. Fourth Eval Change: Unchanged Comment: still appears weak and unable to tolerate PO Course/Dx - Course Course Of Treatment: 23 year old female presents with diarrhea for past two days. was given fluid and is feeling better. c diff was negative. discussed with patient and is concerned for cryptosporidium so will treat with nitazoxanide. on reevaulation patient was complaining of pain. gave gi cocktail and pain free. repeat vitals still tachycardic and has fever. patient appears very weak. gave fluids and tyenlol but still appears weak. is not orthostatic. tried to make eat crackers and drink fluids and patient unable to do so. patient lives alone and is concerned that if gets worst will be unable to get medical help. discussed with dr Zavala who agrees to admit. - Diagnoses Provider Diagnoses: Diarrhea, Vomiting Discharge ED - Sign-Out/Discharge Documenting (check all that apply): Patient Departure, Receiving Sign-Out Receiving patient FROM: Kamini Gatica - Discharge Plan Condition: Stable Disposition: ADMITTED TO [facility] - Billing Disposition and Condition Condition: STABLE Disposition: Admitted to [facility]
[2018-12-27] MEDS ORDERED: Morphine INJ* 2 MG/ML 1 ML SYRINGE (TWO MG - NEW SYRINGE VERSION) IV ONE (19:19)
[2018-12-27] MEDS ORDERED: Acetaminophen TAB* 325 MG PO ONE (20:19)
[2018-12-27] MEDS ORDERED: Loperamide CAP* 2 MG PO ONE (20:57)
[2018-12-27] MEDS ORDERED: NS 0.9% 1000 ML** 1,000 ML IV ONE (22:51)
[2018-12-27] MEDS ORDERED: oxyCODONE/Acetamin 5/325 MG* TAB PO PRN (23:29)
[2018-12-27] MEDS ORDERED: NS 0.9% 1000 ML** 1,000 ML IV SCH (23:30)
[2018-12-28] MEDS ORDERED: Lidocaine 2% VISCOUS* 15 ML UDC PO ONE (02:03)
--- NOTE | 2018-12-28 02:03 | HP ---
History of Present Illness - History of Present Illness Reason for Visit: diarrhea History of Present Illness: 23 year old female presenting with 1 day history of multiple episodes of diarrhea, abdominal pain and nausea. Pt said she was exposed to cattle feces last week and may have accidentally ingested manure when she got sprayed in the face. She is very concerned that she now has a parasitic infection from the cattle. She is unable to tolerate much because of her nausea. She has had countless episodes of watery diarrhea, no blood, no mucus. When she arrived in the ED, she was slightly tachycardic with a low grade fever. She received about 3L of fluids in the ED. Review of Systems - Measurements Intake and Output: Intake and Output Last 24 Hours 12/25/18 12/26/18 12/27/18 12/28/18 06:59 06:59 06:59 06:59 Intake Total 1050 Balance 1050 Weight 160 lb Intake: IV Fluids 1050 - Review of Systems Constitutional Symptoms: Positive: Weakness, Fever Dermatology: Positive: Normal HEENT: Positive: Normal Eyes: Positive: Normal Thyroid: Positive: Normal Pulmonary: Positive: Normal Cardiology: Positive: Normal Gastroenterology: Positive: Abdominal Pain, Nausea, Diarrhea Endocrinology: Positive: Normal Neurology: Positive: Normal Psychiatry: Positive: Normal Objective Active Medications: Sodium Chloride (Ns 0.9% 1000 Ml) 1,000 mls @ 100 mls/hr IV PER RATE ERICA Last Admin: 12/28/18 01:43 Dose: 100 mls/hr Oxycodone/Acetaminophen (Percocet 5/325 Tab*) 1 tab PO Q4H PRN PRN Reason: PAIN - MODERATE Vital Signs - 8 hr 12/27/18 12/27/18 12/27/18 18:10 20:15 20:16 Temperature 98.0 F Pulse Rate 91 93 Respiratory Rate Blood Pressure 116/61 (mmHg) O2 Sat by Pulse 94 94 Oximetry 12/27/18 12/27/18 12/27/18 20:19 20:52 20:53 Temperature 101.4 F Pulse Rate 113 88 103 Respiratory 18 Rate Blood Pressure 116/60 118/65 119/75 (mmHg) O2 Sat by Pulse 94 95 99 Oximetry 12/27/18 12/27/18 12/27/18 20:54 21:17 22:00 Temperature Pulse Rate 96 79 87 Respiratory Rate Blood Pressure 104/76 (mmHg) O2 Sat by Pulse 98 96 93 Oximetry 12/27/18 12/27/18 12/27/18 22:26 22:51 23:00 Temperature 100.1 F Pulse Rate 81 82 74 Respiratory 14 Rate Blood Pressure 106/59 118/60 (mmHg) O2 Sat by Pulse 95 95 95 Oximetry 12/27/18 12/27/18 12/27/18 23:21 23:46 23:48 Temperature Pulse Rate 81 67 67 Respiratory Rate Blood Pressure 103/63 103/63 (mmHg) O2 Sat by Pulse 95 95 94 Oximetry 12/27/18 12/28/18 12/28/18 23:51 00:00 00:22 Temperature Pulse Rate 69 64 62 Respiratory Rate Blood Pressure 101/59 94/56 (mmHg) O2 Sat by Pulse 96 94 95 Oximetry 12/28/18 12/28/18 12/28/18 01:00 01:22 01:24 Temperature 99.9 F Pulse Rate 61 64 64 Respiratory 16 Rate Blood Pressure 98/61 (mmHg) O2 Sat by Pulse 96 95 Oximetry Appearance: she looks sickly, uncomfortable, out of it. Eyes: No Scleral Icterus, PERRLA Ears/Nose/Mouth/Throat: NL Teeth, Lips, Gums Neck: NL Appearance and Movements; NL JVP Respiratory: Symmetrical Chest Expansion and Respiratory Effort Cardiovascular: NL Sounds; No Murmurs; No JVD Abdominal: - - lower abdominal tenderness, NL sounds, no distention Extremities: No Edema Neurological: Alert and Oriented x 3 Result Diagrams: 12/27/18 12:47 12/27/18 12:47 Microbiology and Other Data: Microbiology 12/27/18 13:20 C. difficile DNA Amplification - Final Stool 027 Presumptive NEGATIVE Toxigenic C.diff NEGATIVE 12/27/18 13:20 Stool Gross Appearance - Final Stool Stool Lactoferrin - Final 12/27/18 13:20 Stool Gross Appearance - Final Stool Shiga Toxin I & II - Final Stool Occult Blood (RAF) - Final Assess/Plan/Problems-Billing Assessment: - Patient Problems (1) Watery diarrhea Current Visit: Yes Status: Acute Code(s): R19.7 - DIARRHEA, UNSPECIFIED SNOMED Code(s): 39018671 Comment: 1 day history of diarrhea, likely from the exposure to cattle feces cultures sent supportive care fluids, zofran, pain management replace electrolytes she is developing a slight coagulopathy probably from Vit k loss from frequent stooling (2) Full code status Current Visit: Yes Status: Acute Code(s): Z78.9 - OTHER SPECIFIED HEALTH STATUS SNOMED Code(s): 646622868 (3) DVT prophylaxis Current Visit: Yes Status: Acute Code(s): Z29.9 - ENCOUNTER FOR PROPHYLACTIC MEASURES, UNSPECIFIED SNOMED Code(s): 632117692
[2018-12-28] MEDS: KCL 10 MEQ/50 ML IVPREMIX* 10 MEQ/50 ML BAG IV SCH ×2 (02:28→05:05)
[2018-12-28 06:20] LABS: ABS Lymphocytes 0.6 10^3/ul (1.0-4.8); ABS Monocytes 0.4 10^3/ul (0-0.8); ABS Neutrophils 5.6 10^3/ul (1.5-7.7); Eosinophil % 0.4 %; Hematocrit 36 % (35-47); Hemoglobin 12.9 g/dL (12.0-16.0); Lymphocyte % 8.6 %; Mean Corpuscular HGB Conc 35 g/dL (31-36); Mean Corpuscular Hemoglobin 31 pg (27-31); Mean Corpuscular Volume 89 fL (80-97); Mean Platelet Volume 8.9 fL (7.4-10.4); Platelet Count 151 10^3/uL (150-450); Red Blood Count 4.11 10^6 /uL (3.70-4.87); Red Cell Distribution Width 12 % (10-15); White Blood Count 6.6 10^3/uL (3.5-10.8)
[2018-12-28 06:29] LABS: INR 1.27 (0.82-1.09)
[2018-12-28 06:30] LABS: BUN/Creatinine Ratio 16.1 (8-20); Calcium 8.1 mg/dL (8.6-10.3); EGFR African American 141.9 (>60); EGFR Non-African American 117.3 (>60); Potassium 3.5 mmol/L (3.5-5.0)
[2018-12-28 07:45] LABS: Magnesium 1.8 mg/dL (1.9-2.7)
[2018-12-28] MEDS ORDERED: Ondansetron INJ* 2 MG/ML VIAL IV PRN (11:14)
--- NOTE | 2018-12-28 12:28 | CONS ---
CONSULTATION REPORT: DATE OF CONSULTATION: 12/28/18 REQUESTING PROVIDER: Judy Ball NP CONSULTING SERVICE: Infectious Disease. REASON FOR CONSULTATION: Watery diarrhea. IMPRESSION: 1. Fever, chills, anorexia, crampy abdominal pain, and multiple liquid watery stools for 2 days with resulting dehydration, and no vomiting, most consistent with an infectious enteritis. She does have exposure to cow and calf feces. 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 She is immunocompetent as far as we can tell. 2. Eczema. RECOMMENDATIONS: Her stool studies are pending including her giardia and crypto. We will empirically start nitazoxanide as she is having pretty severe diarrhea. She as of yet unable to keep down fluids, that will be 500 mg by mouth twice a day. If pharmacy does not have it, we are going to try and get it today. We will continue supportive care otherwise. Because of C. diff testing is negative, we can consider some Imodium as well. 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 She was apparently sprayed in a face by cow stool the last week while working on the rear end of a cow. Tuesday, she had a migraine, which was not out of the ordinary for her, it progressed into nausea. The migraine resolved and she developed crampy abdominal pain and severe watery diarrhea on Tuesday that persisted. Yesterday, she was unable to barely get out of bed because she felt so dehydrated. She had not had anything to eat or drink in a day and a half. She came to the ER. She was febrile. She had no leukocytosis. Her potassium was 2.9. HCG is 0. INR is 1.3. She received fluid resuscitation today. She is feeling more energetic. She is still having liquid watery stools and crampy abdominal pain, has not had vomiting throughout , thus her nausea is a little bit better. INR was 1.3 yesterday, it was a 1.27 today. She has not had an infection requiring hospitalization in the past. She has no rash or joint pain. PAST MEDICAL HISTORY: 1. Eczema. 2. Seasonal and environmental allergies, receiving allergy injections. MEDICATIONS: 1. Saline infusion. 2. Oxycodone as needed. ALLERGIES: SULFA and OPIOIDS. FAMILY HISTORY: No recurrent infection. 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 Nonsmoker. No injection drugs. REVIEW OF SYSTEMS: All negative except as noted above to 12 point review of systems. PHYSICAL EXAM: Vital Signs: Temperature 37.3, heart rate 70, respiratory rate 20, blood pressure 86/48, oxygen saturation 96% on room air, T-max is 38.6 overnight. In general, she is awake, not in distress. No diaphoresis. Neurologic: She is oriented x3. Follows all commands. Sensation is intact to light touch in the upper and lower extremities. HEENT: There is no conjunctival hemorrhage. Oropharynx is without lesions. There is no thrush or leukoplakia. Neck is supple without mass. Heart is regular rate and rhythm without murmurs, rubs or gallops. Lungs are clear to auscultation bilaterally. Abdomen: Soft. There is epigastric and midabdominal tenderness to palpation. There is no rebound. There are bowel sounds present. Skin: There is no rash or splinter hemorrhages. Musculoskeletal: There is no spine tenderness to palpation or joint synovitis. DIAGNOSTIC STUDIES/LAB DATA: White blood cell count 6.6, hemoglobin 12.9, platelets 150. Creatinine 0.6. HCG 0. Lipase less than 10. Please see impressions and recommendations outlined above. Thanks for asking me to see Ms. Alvarado in consultation. [id number]/[facility] #: [id number] MTDD
[2018-12-28] MEDS: PROCHLORPERAZINE INJ 5 MG/ML 2 ML VIAL IV PRN (13:15)
[2018-12-28] MEDS: Ketorolac INJ* 30 MG/ML 1 ML VIAL IV PUSH PRN (13:16)
[2018-12-28] MEDS: NS 0.9% 1000 ML** 1,000 ML IV SCH ×2 (13:16→20:03)
--- NOTE | 2018-12-28 19:00 | PN ---
Subjective Date of Service: 12/28/18 Interval History: Patient was seen resting in bed. Has had one loose stool today. Continuing to have nausea without emesis. Has had several cups of brennen migue, ate nothing of her clear liquids lunch. Nausea did not respond well to zofran, gave one time dose of compazine. Agreed to allow patient to have diet as tolerated if she felt like she could tolerate a bland food, though encouraged her to take it easy. Pain is not as severe as it has been in the past few days. Family History: Unchanged from Admission Social History: Unchanged from Admission Past Medical History: Unchanged from Admission Objective Active Medications: Sodium Chloride (Ns 0.9% 1000 Ml) 1,000 mls @ 75 mls/hr IV PER RATE ERICA Last Admin: 12/28/18 13:16 Dose: 75 mls/hr Ketorolac Tromethamine (Toradol Inj*) 30 mg IV PUSH Q6H PRN PRN Reason: PAIN - MODERATE Last Admin: 12/28/18 13:16 Dose: 30 mg Ondansetron HCl (Zofran Inj*) 4 mg IV Q6H PRN PRN Reason: NAUSEA Last Admin: 12/28/18 11:27 Dose: 4 mg Oxycodone/Acetaminophen (Percocet 5/325 Tab*) 1 tab PO Q4H PRN PRN Reason: PAIN - MODERATE Prochlorperazine Edisylate (Compazine Inj*) 5 mg IV Q6H PRN PRN Reason: NAUSEA/VOMITING Last Admin: 12/28/18 13:15 Dose: 5 mg Vital Signs - 8 hr 12/28/18 11:05 Temperature 99.1 F Pulse Rate 86 Respiratory 16 Rate Blood Pressure 111/56 (mmHg) O2 Sat by Pulse 97 Oximetry Oxygen Devices in Use Now: None Appearance: This is a well developed young female seen resting in bed, no acute distress. Eyes: No Scleral Icterus, PERRLA Ears/Nose/Mouth/Throat: NL Teeth, Lips, Gums, Mucous Membranes Moist Neck: NL Appearance and Movements; NL JVP, Trachea Midline Respiratory: Symmetrical Chest Expansion and Respiratory Effort, Clear to Auscultation Cardiovascular: NL Sounds; No Murmurs; No JVD, No Edema Abdominal: NL Sounds; No Tenderness; No Distention Lymphatic: No Cervical Adenopathy Extremities: No Edema, No Clubbing, Cyanosis Skin: No Rash or Ulcers, No Nodules or Sclerosis Neurological: Alert and Oriented x 3 Lines/Tubes/Other Access: Clean, Dry and Intact Peripheral IV Result Diagrams: 12/28/18 05:51 12/28/18 05:51 Microbiology and Other Data: Microbiology 12/27/18 13:20 C. difficile DNA Amplification - Final Stool 027 Presumptive NEGATIVE Toxigenic C.diff NEGATIVE 12/27/18 13:20 Stool Gross Appearance - Final Stool Stool Lactoferrin - Final 12/27/18 13:20 Stool Gross Appearance - Final Stool Shiga Toxin I & II - Final Stool Occult Blood (RAF) - Final Assess/Plan/Problems-Billing Assessment: - Patient Problems (1) Colitis Current Visit: Yes Status: Acute Code(s): K52.9 - NONINFECTIVE GASTROENTERITIS AND COLITIS, UNSPECIFIED SNOMED Code(s): 26717873 Comment: -Started after cow stool sprayed in her face. Has had a several day history of water diarrhea with nausea. -Cryptosporidium, giardia, CDIFF, and lactoferrin negative. -Dr. Rouse feels that this is a self-limiting infection, continue supportive measures. (2) DVT prophylaxis Current Visit: Yes Status: Acute Code(s): Z29.9 - ENCOUNTER FOR PROPHYLACTIC MEASURES, UNSPECIFIED SNOMED Code(s): 861925008 Comment: -Low risk, patient frequently moves about the room. (3) Full code status Current Visit: Yes Status: Acute Code(s): Z78.9 - OTHER SPECIFIED HEALTH STATUS SNOMED Code(s): 358558873 Status and Disposition: Condition: Fair Disposition: Admit OBV. Attending: Nevaeh Terry
[2018-12-29] MEDS: PROCHLORPERAZINE INJ 5 MG/ML 2 ML VIAL IV PRN (00:54)
[2018-12-29] MEDS: Ketorolac INJ* 30 MG/ML 1 ML VIAL IV PUSH PRN (00:54)
[2018-12-29] MEDS ORDERED: Magnesium Sulfate 1 GM IV* 1 GM/100 ML BAG IV ONE (06:59)
[2018-12-29] MEDS: NS 0.9% 1000 ML** 1,000 ML IV SCH (08:20)
[2018-12-29] MEDS ORDERED: Ibuprofen TAB* 600 MG PO PRN (13:47)
[2018-12-29 14:34] VITALS: BP 104/59
--- NOTE | 2018-12-29 19:54 | DS ---
DISCHARGE SUMMARY: DATE OF ADMISSION: 12/27/18 DATE OF DISCHARGE: 12/29/18 ATTENDING PHYSICIAN: Dr. Terry.* (DICTATED BY KAYLEIGH CORNELIUS, MONTSE) PRIMARY CARE PHYSICIAN: [facility]. CONSULTING PHYSICIAN: Dr. Kingston. PRIMARY DIAGNOSIS: Gastroenteritis. PROCEDURES: None. STUDIES: EKG showed sinus rhythm. PERTINENT LAB DATA: Chloride 112, calcium 8.1, magnesium 1.8, lactic acid 0.6. Micro, stool samples negative for cryptosporidium or giardia, negative for C. diff, negative for shiga toxin, blood or lactoferrin. HISTORY OF PRESENT ILLNESS/HOSPITAL COURSE: This is a 23-year-old female with no significant past medical history, who was admitted on 12/27/18 for a 1-day history of watery diarrhea, abdominal pain, and nausea. The previous week, she was exposed to cattle feces and may have accidently ingested manure when she got sprayed in the face. In the emergency room, she received 3 L of fluid. Labs were drawn, was given 2 g of IV magnesium, 40 mEq of potassium, Toradol, and antiemetics. The next day, on 12/28/18, magnesium levels were still low at 1.8, replaced with another 2 g of magnesium. The patient yesterday was unable to tolerate more than a few cups of brennen migue, continued IV fluids, though had only 1 bowel movement during the day that was relatively formed, then today the patient, though not eating much, was able to tolerate some toast and apple sauce and keep fluids down, though still reported mild nausea and abdominal pain , had taken Toradol, though stated that it made her feel agitated and opted to no longer use it, instead offered the patient ibuprofen. The patient appears to be slightly withdrawn, though is okay with progressing diet more at home. Goal while in the hospital was to increase hydration status, which has now been achieved. REVIEW OF SYSTEMS: An 11-point system review was performed, which was positive for abdominal pain and nausea, negative for chest pain, shortness of breath, palpitations, diarrhea, vomiting, or issues moving her bladder. PHYSICAL EXAMINATION: Temp 98.4, 70 pulse, 20 resp, 97% oxygen on room air, 104 /59 blood pressure. General: This is a well-developed young woman seen resting in bed, appears slightly withdrawn, though no acute distress noted. Eyes: Conjunctivae pink and moist, PERRLA, EOM intact. ENT: Oropharynx clear. Mucous membranes moist. Neck is supple. Cardiac: S1, S2 present. Heart rate regular. No murmurs, gallops, or rubs are appreciated. Lung sounds clear throughout bilaterally on room air. No accessory muscle use noted. Abdomen is soft, nondistended, is tender to bilateral upper and lower quadrants with normoactive bowel sounds x4. Musculoskeletal: Strength 5/5 to bilateral upper and lower extremities. No clubbing or cyanosis of the digits. Skin: No open areas or rashes appreciated. Neurologic: No focal deficits appreciated. Sensation intact to light touch throughout. Psych: Alert and oriented x4, withdrawn. Thought content organized. DISCHARGE PLAN: DIET: Diet is as tolerated. ACTIVITY: Activity is as tolerated. Is to return to the hospital if she passes any blood through her rectum or pain and nausea increases or develops any fever or chills. PLAN: Plan for her gastroenteritis: This is felt to be a self-limiting illness. Main goal is to stay hydrated. Will send the patient home with oral ondansetron, lactobacillus, and ibuprofen. For the pain, the patient may alternate ibuprofen and Tylenol for the next several days until her pain gets better. Recommend that she stay away from dairy foods in order to prevent reoccurrence of diarrhea. CODE STATUS: Full code. CONDITION UPON DISCHARGE: Stable. DISPOSITION: To home. TIME SPENT: Time spent on the patient is about 40 minutes with more than half of that spent [id number]. KAYLEIGH CORNELIUS NP [id number]/[facility] #: [id number] SATISH
== END 2018-12-29 18:00 | disposition home or self-care (01) ==
LOC: ED 12:10 → MED 23:29
PROVIDERS: ADMIT Student in an Organized Health Care Education/Training Program; ATTEND Internal Medicine
DX: K52.9 Noninfective gastroenteritis and colitis, unspecified (principal); R50.9 Fever, unspecified; L30.9 Dermatitis, unspecified; R63.0 Anorexia; R10.9 Unspecified abdominal pain; R94.31 Abnormal electrocardiogram [ECG] [EKG]
CPT/HCPCS: 36415; 80048; 80053; 82150; 82272; 83605; 83630; 83690; 83735; 84702; 85025; 85610; 86140; 87015; 87040; 87045; 87046; 87177; 87207; 87209; 87328; 87329; 87493; 93005; 96365; 96366; 96367; 96375; 96376; 99284; A9270-GY; G0378; J0780; J1885; J2405; J3475; J3480